=== PATIENT | female | born 1970 | race Caucasian/White ===

== ENCOUNTER 2023-05-22 20:50 | Emergency (ER) | payer SELFPAY ==
[2023-05-22 20:55] VITALS: TEMP 97.5
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
[2023-05-22 23:12] VITALS: BP 112/72; PULSE 93; RESP 20
[2023-05-22 23:18] VITALS: O2SAT 98
== END 2023-05-22 23:31 | disposition home or self-care (01) ==
LOC: ED 20:50
DX: Z02.89 Encounter for other administrative examinations (principal); F10.129 Alcohol abuse with intoxication, unspecified; Y90.8 Blood alcohol level of 240 mg/100 ml or more; Z28.310 Unvaccinated for COVID-19
CPT/HCPCS: 36415; 82077; 99282